=== PATIENT | male | born 1955 | race Caucasian/White ===

== ENCOUNTER → 2022-02-14 | Outpatient (REF) | payer MEDICARE, BC ==
[2022-02-14 18:43] LABS: PERCENT SATURATION 14.8 % (19.7-50.0)
[2022-02-14 18:45] LABS: FERRITIN 6.7 NG/ML (10.5-307.3)
== END ==
LOC: M LAB REF 16:16
PROVIDERS: ATTEND Internal Medicine
DX: Z00.00 Encounter for general adult medical examination without abnormal findings (principal); D50.9 Iron deficiency anemia, unspecified

== ENCOUNTER 2022-10-16 07:20 | Day surgery (SDC) | payer MEDICARE, BC ==
[~2022-10-16] VITALS: Ht 175.3 cm; Wt 78.7 kg
[~2022-10-16 07:20] MED LIST: NS 1,000 ML IV ONE; fentaNYL 100 MCG/2 ML INJECTION As Ordered ONE; propofoL 200 MG/20 ML VIAL As Ordered ONE
[2022-10-16] MEDS ORDERED: LIDOCAINE 2% 100MG/5ML SDV (FOR ANES.) As Ordered ONE (08:50)
[2022-10-16] MEDS ORDERED: GLYCOPYRROLATE INJ 0.2 MG/ML 2 ML VIAL As Ordered ONE (08:51)
[2022-10-16 09:16] VITALS: TEMP 97
[2022-10-16 09:34] VITALS: BP 116/60; O2SAT 98
== END 2022-10-16 09:50 | disposition home or self-care (01) ==
LOC: M OPP 07:20
PROVIDERS: ATTEND Internal Medicine Gastroenterology
DX: Z12.11 Encounter for screening for malignant neoplasm of colon (principal); Z86.010 Personal history of colon polyps; K64.0 First degree hemorrhoids; K29.70 Gastritis, unspecified, without bleeding; K31.89 Other diseases of stomach and duodenum; R12 Heartburn
CPT/HCPCS: 43239; 88305; G0105; J3010

== ENCOUNTER → 2024-02-22 | Outpatient (REF) | payer MEDICARE, BC ==
[2024-02-22 17:49] LABS: PERCENT SATURATION 10.1 % (19.7-50.0)
[2024-02-22 17:52] LABS: FERRITIN 5.4 NG/ML (10.5-307.3)
== END ==
LOC: M LAB REF 16:22
PROVIDERS: ATTEND Internal Medicine
DX: D64.9 Anemia, unspecified (principal)

== ENCOUNTER → 2025-02-26 | Outpatient (REF) | payer MEDICARE, BC ==
[2025-02-26 14:22] LABS: IRON (FE) 58.0 UG/DL (65-175); PERCENT SATURATION 15.1 % (19.7-50.0)
== END ==
LOC: M LAB REF 13:56
PROVIDERS: ATTEND Internal Medicine
DX: D50.9 Iron deficiency anemia, unspecified (principal)